=== PATIENT | male | born 1975 | race Caucasian/White ===

== ENCOUNTER 2017-01-09 12:31 | Emergency (ER) | payer SELFPAY ==
[~2017-01-09] VITALS: Wt 71.0 kg
[~2017-01-09 12:31] MED LIST: IBUP400T22 PO; VITAMINS PO
--- NOTE | 2017-01-09 15:40 | ERD ---
ER Documentation Chief Complaint Date/Time DATE: 01/09/17 TIME: 15:39 Chief Complaint CHEST PAIN AFTER CLEANING WITH BLEACH FOR 1 WK. NO PAIN ON INSPIRATION . HPI This 41-year-old male presents to the ER for evaluation of chest pain after he was cleaning with bleach for approximately 4 days duration. The patient states that his chest pain is improved since not being around bleach. He denies any shortness of breath or nausea ROS All systems reviewed and are negative except as per history of present illness. Medications Home Meds Active Scripts Ibuprofen* (Motrin*) 400 Mg Tab, 400 MG PO Q6H Y for PAIN AND OR ELEVATED TEMP, #30 TAB Prov:ROGER LEO PA-C 03/10/16 Reported Medications [Vitamins] No Conflict Check, PO DAILY 11/07/12 Allergies Allergies: Coded Allergies: No Known Allergy (Unverified , 11/07/12) PMhx/Soc History of Surgery: No Anesthesia Reaction: No Hx Neurological Disorder: No Hx Respiratory Disorders: No Hx Cardiac Disorders: No Hx Psychiatric Problems: Yes (ANXIETY, DEPRESSION ) Hx Miscellaneous Medical Probl: Yes (ANXIETY, DEPRESSION) Hx Alcohol Use: Yes (socially) Hx Substance Use: No Hx Tobacco Use: No Physical Exam Vitals Vital Signs Date Time Temp Pulse Resp B/P Pulse Ox O2 Delivery O2 Flow Rate FiO2 01/09/17 12:34 97.8 72 21 108/67 98 Physical Exam Const: No acute distress Head: Atraumatic Eyes: Normal Conjunctiva ENT: Normal External Ears, Nose and Mouth. Neck: Full range of motion..~ No meningismus. Resp: Clear to auscultation bilaterally Cardio: Regular rate and rhythm, no murmurs Abd: Soft, non tender, non distended. Normal bowel sounds Skin: No petechiae or rashes Back: No midline or flank tenderness Ext: No cyanosis, or edema Neur: Awake and alert Psych: Normal Mood and Affect Procedures/MDM EKG: Rate/Rhythm: [Normal Sinus Rhythm] QRS, ST, T-waves: [No changes consistent w/ acute ischemia] Impression: [No evidence of ischemia or arrhythmia] This 41-year-old presents to the ER for evaluation of chest pain after being around bleach. EKG is nonischemic and the patient left before we got his chest x-ray. He is not hypoxic, no acute distress Departure Diagnosis: Primary Impression: Chest pain Condition: Stable WAI SINGH DO Jan 09, 2017 15:40
== END 2017-01-09 15:55 | disposition left against medical advice (07) ==
LOC: FTE 12:31
DX: R07.9 Chest pain, unspecified (principal)
CPT/HCPCS: 93005